=== PATIENT | male | born 1945 | race Caucasian/White ===

== ENCOUNTER 2023-05-01 09:28 | Emergency (ER) | payer MEDICARE, SELFPAY ==
[2023-05-01 09:40] VITALS: BP 157/77; PULSE 64; RESP 20; TEMP 36.9; O2SAT 100
--- NOTE | 2023-05-01 09:54 | ED.LOWEXIN ---
HPI - Extremity Injury (Lower) General Chief Complaint: Extremity Injury, Lower Stated Complaint: Right Toe Injury Time Seen by Provider: 05/01/23 09:54 Source: patient Mode of arrival: ambulatory Limitations: no limitations History of Present Illness HPI Narrative: 77-year-old male presented for complaint of right great toe pain, redness, and swelling for about 3 days. Denies injury. Denies history of gout. He has been taking ibuprofen and applying Aspercreme. Denies change in diet or alcohol consumption. Related Data Home Medications Medication Instructions Recorded Confirmed amlodipine 5 mg tablet 5 mg PO DAILY 05/01/23 05/01/23 atorvastatin 20 mg tablet 20 mg PO DAILY 05/01/23 05/01/23 levothyroxine 75 mcg tablet 75 mcg PO DAILY 05/01/23 05/01/23 olmesartan 40 mg tablet 40 mg PO DAILY 05/01/23 05/01/23 Allergies Allergy/AdvReac Type Severity Reaction Status Date / Time No Known Allergies Allergy Verified 05/01/23 09:55 Review of Systems Review of Systems: CONSTITUTIONAL: Denies body aches, fever, chills CARDIOVASCULAR: Denies chest pain, palpitations, or edema. RESPIRATORY: Denies cough or dyspnea. GASTROINTESTINAL: Denies abdominal pain, nausea, vomiting, or diarrhea. SKIN: Denies rash, itching, or wounds. MUSCULOSKELETAL: Reports right great toe pain Denies back pain NEUROLOGIC: Denies headache, numbness, tingling, or weakness. All systems reviewed & are unremarkable except as noted in HPI and below PMFSH Past Medical History Medical History (Updated 05/01/23 @ 10:05 by Bozena Green APRN) HTN (hypertension) Comments At time of signature, I have reviewed and agree with nursing past medical, surgical, social and family history unless otherwise noted. Please see nursing chart for further information. There is no relevant family history pertinent to the presenting complaint Exam Narrative: GENERAL: Well-appearing CHEST: Speaks in full sentences. No respiratory distress. HEART: Regular rate and rhythm. Normal and equal peripheral pulses. EXTREMITIES: Right great toe redness, swelling noted and tender to MTP. limited range of motion at MTP joint endorses pain with movement. c/w gout. Right foot has normal strength and sensation. No ecchymosis, No open wounds, or obvious deformity; alignment normal, pulse palpable and equal bilaterally, skin warm, dry, pink. Capillary refill less than 3 seconds. SKIN: Warm, dry, no rash. NEURO: Alert and oriented x3. PSYCH: Normal mood and affect Course Course Emergency Course: Patient is aware of diagnosis, understands and agrees to treatment plan. Anticipatory guidance given. Patient agrees to follow-up as directed and is aware of reasons to seek care at the emergency department. Portions of this record may have been created with voice recognition software Level of Care: Express Care Visit Vital Signs Vital signs: Vital Signs Temperature 98.4 F 05/01/23 09:40 Pulse Rate 64 05/01/23 09:40 Respiratory Rate 20 05/01/23 09:40 Blood Pressure 157/77 H 05/01/23 09:40 Pulse Oximetry 100 05/01/23 09:40 Oxygen Delivery Room Air 05/01/23 09:40 Temperature 98.4 F 05/01/23 09:40 Pulse Rate 64 05/01/23 09:40 Respiratory Rate 20 05/01/23 09:40 Blood Pressure 157/77 H 05/01/23 09:40 Pulse Oximetry 100 05/01/23 09:40 Oxygen Delivery Room Air 05/01/23 09:40 Reviewed MDM - Extremity Injury (Lower) MDM Narrative Medical decision making narrative: Discussed physical exam findings c/w right great toe gout. reviewed prescription. Advised supportive measures and signs/symptoms to go to the ER. Pt is appropriate for outpt treatment and f/u with pcp. Differential Diagnosis Differential diagnosis: Likely other (arthritis, gout, dislocation, fracture, cellulitis) Discharge Plan Discharge Clinical Impression: Gout Patient Disposition: Home, Self-Care Condition: Stable Instructions: Low Purine Di
== END 2023-05-01 10:05 | disposition home or self-care (01) ==
PROVIDERS: Emergency Provider Nurse Practitioner Family; PCP Internal Medicine
DX: M10.9 Gout, unspecified (principal); I10 Essential (primary) hypertension
CPT/HCPCS: 99213; G0463

== ENCOUNTER 2023-10-20 18:07 | Emergency (ER) | payer MEDICARE, SELFPAY ==
[2023-10-20 18:12] VITALS: BP 128/62; PULSE 75; RESP 20; TEMP 37.2; O2SAT 98
--- NOTE | 2023-10-20 18:29 | ED.MALEGU ---
HPI - Male Genitourinary General Chief complaint: Urogenital-Male Stated complaint: Poss UTI Time Seen by Provider: 10/20/23 18:22 Source: patient, family, RN notes reviewed and old records reviewed Mode of arrival: ambulatory Limitations: no limitations History of Present Illness HPI Narrative: 78 year old male accompanied by his with complaints of frequency, urgency and some low grade fevers since . Patient reports that he has been taking some Ibuprofen for his fevers, Patient denies any burning or pain with urination,reports no visible hematuria no CVA tnderness or any rectal pain or pressure. MD Complaint: other (urinary frequency and urgency with low grade fever for 3 days) Onset (ago): day(s) (3) Related Data Home Medications Medication Instructions Recorded Confirmed amlodipine 5 mg tablet 5 mg PO DAILY 05/01/23 10/20/23 atorvastatin 20 mg tablet 20 mg PO DAILY 05/01/23 10/20/23 levothyroxine 75 mcg tablet 75 mcg PO DAILY 05/01/23 10/20/23 olmesartan 40 mg tablet 40 mg PO DAILY 05/01/23 10/20/23 colchicine 0.6 mg tablet 0.6 mg PO DAILY 10/20/23 10/20/23 Allergies Allergy/AdvReac Type Severity Reaction Status Date / Time No Known Allergies Allergy Verified 10/20/23 18:16 Review of Systems Review of Systems: CONSTITUTIONAL: Reports low grade fevers, no chills, or sweats. CARDIOVASCULAR: Denies chest pain, palpitations, or edema. RESPIRATORY: Denies cough or dyspnea. GASTROINTESTINAL: Denies abdominal pain, nausea, vomiting, or diarrhea. GENITOURINARY: Reports no dysuria, positive for frequency, urgency. Denies flank pain or hematuria. SKIN: Denies rash or itching. MUSCULOSKELETAL: Denies back pain or myalgia. Denies CVA tenderness NEUROLOGIC: Denies headache All systems reviewed & are unremarkable except as noted in HPI and below PMFSH Past Medical History Medical History (Updated 10/21/23 @ 23:34 by Ayesha Garcia NP) GERD (gastroesophageal reflux disease) Gout HTN (hypertension) Hypothyroid Surgical History Surgical History (Updated 10/21/23 @ 23:29 by Ayesha Garcia NP) H/O left inguinal hernia repair Social History Social History (Updated 10/21/23 @ 23:29 by Ayesha Garcia NP) Smoking status: Never smoker Alcohol intake: current Alcohol use details: social Substance use type: does not use Living arrangements: with family Gender identity (if verbalized by the patient): Male Comments At time of signature, agree with nursing past medical, surgical, social and family history. There is no relevant family history pertinent to the presenting complaint Exam Narrative: GENERAL: Well-appearing, well-nourished, and in no acute distress. HEAD: Normocephalic, atraumatic. NECK: Supple. no lymphadenopathy CHEST: Clear to auscultation. No respiratory distress.SAO2 98% on room air HEART: Regular rate and rhythm. No murmur heard. Normal peripheral pulses. ABDOMEN: Soft, nontender, nondistended, normal active bowel sounds. No CVA tenderness urinary urgency and frequency EXTREMITIES: Normal range of motion. No edema. SKIN: Warm, dry, no rash. NEURO: No focal deficits. Alert and oriented x3. Course Course Emergency Course: Patient is aware of diagnosis, understands and agrees to treatment plan.? Anticipatory guidance given.? Patient agrees to follow-up as directed and is aware of reasons to seek care at the emergency department. Portions of this record may have been created with voice recognition software Level of Care: Express Care Visit Vital Signs Vital signs: Vital Signs Temperature 37.2 C 10/20/23 18:12 Pulse Rate 75 10/20/23 18:12 Respiratory Rate 20 10/20/23 18:12 Blood Pressure 128/62 10/20/23 18:12 Pulse Oximetry 98 10/20/23 18:12 Oxygen Delivery Room Air 10/20/23 18:12 Temperature 37.2 C 10/20/23 18:12 Pulse Rate 75 10/20/23 18:12 Respiratory Rate 20 10/20/23 18:12 Blood Pressure 128/62 10/20/23 18:12
[2023-10-20 18:57] LABS: EDUAAPPEAR Cloudy; EDUABILI Negative; EDUABLOOD 2+; EDUACOLOR1 Yellow; EDUAGLUCOSE Negative; EDUAKETONE Negative; EDUALEUKO 1+; EDUANITRATE Positive; EDUAPH 5.5; EDUAPROTEIN 2+; EDUASPGRAVITY 1.025
== END 2023-10-20 19:00 | disposition home or self-care (01) ==
PROVIDERS: Emergency Provider Registered Nurse; PCP Internal Medicine
DX: N39.0 Urinary tract infection, site not specified (principal); K21.9 Gastro-esophageal reflux disease without esophagitis; I10 Essential (primary) hypertension; E03.9 Hypothyroidism, unspecified; M10.9 Gout, unspecified
CPT/HCPCS: 81003; 87077; 87086; 87088; 87186; 99213; G0463